=== PATIENT | female | born 1965 | race Caucasian/White ===

== ENCOUNTER → 2016-10-18 | Outpatient (CLI) | payer OTHER ==
--- NOTE | 2016-10-18 16:00 | DIAGNOSTIC IMAGING REPORT ---
BONE SCAN WHOLE BODY CLINICAL HISTORY: Sacrococcygeal disorder. Fibromyalgia. COMPARISON STUDY: No previous studies for comparison. TECHNIQUE: 25.6 mCi of technetium 99m MDP was injected IV at 12:30 PM on October 18, 2016. Whole body imaging was performed in the anterior and posterior projections 3 hours following injection. Spot lateral images of the pelvis were obtained. FINDINGS: Expected soft tissue and renal uptake is present. There is mild linear uptake at the L3-L4 level. There is mild symmetric uptake within each tibia. No suspicious radiotracer uptake is identified on since exam to suggest a neoplastic process. There is focal moderate uptake within the left forefoot. On this exam, it is difficult to determine which toe this is located within but approximately the third toe. No suspicious uptake is identified within the sacrum or coccyx. Pelvic uptake is symmetric. IMPRESSION: 1. No suspicious radiotracer uptake to suggest a neoplastic process. 2. No abnormal uptake within the sacrum or coccyx. 3. Mild linear uptake at the L3-L4 level. While nonspecific, this is likely degenerative. 4. Focal moderate uptake within a toe of the left foot. This could be degenerative or traumatic. Electronically signed by: Bernard Verduzco M.D. 10/18/2016 3:58 PM Dictated Date/Time: 10/18/2016 3:54 PM
== END | disposition home or self-care (01) ==
LOC: C.NUCL 12:25
PROVIDERS: ATTEND Anesthesiology Pain Medicine
DX: M53.3 Sacrococcygeal disorders, not elsewhere classified (principal); M79.7 Fibromyalgia